=== PATIENT | male | born 1955 | race Two or more races ===

== ENCOUNTER 2018-02-09 11:46 | Emergency (ER) | payer OTHER ==
[~2018-02-09] VITALS: Ht 180.3 cm; Wt 81.6 kg
--- NOTE | 2018-02-09 11:55 | NUR ---
BUSINESS UNIT LEADER AT BEDSIDE
[2018-02-09] MEDS ORDERED: IBUPROFEN 600 MG TABLET PO ONE (11:57)
[2018-02-09] MEDS: IBUPROFEN 600 MG TABLET PO ONE (11:59)
--- NOTE | 2018-02-09 13:21 | NUR ---
Patient discharged to home in stable condition. Written and verbal after care instructions given. Patient verbalizes understanding of instruction.
[2018-02-09 13:22] VITALS: BP 135/84
== END 2018-02-09 13:22 | disposition home or self-care (01) ==
LOC: ER 11:47
DX: S70.01XA Contusion of right hip, initial encounter (principal); I10 Essential (primary) hypertension; Z98.890 Other specified postprocedural states; W18.39XA Other fall on same level, initial encounter; Y93.K1 Activity, walking an animal; Y92.89 Other specified places as the place of occurrence of the external cause; Y99.8 Other external cause status
CPT/HCPCS: 72170; 73502; 99284; A4606; Z7610

== ENCOUNTER 2018-06-18 21:44 | Emergency (ER) | payer OTHER ==
[~2018-06-18] VITALS: Ht 182.9 cm; Wt 89.4 kg
[2018-06-18 22:02] VITALS: BP 135/84
[2018-06-18] MEDS ORDERED: diphenhydrAMINE HCL 50 MG CAPSULE ONE (23:15)
[2018-06-18] MEDS ORDERED: diphenhydrAMINE HCL 25 MG CAPSULE PO ONE (23:30)
== END 2018-06-18 23:26 | disposition home or self-care (01) ==
LOC: ER 21:45
DX: S50.362A Insect bite (nonvenomous) of left elbow, initial encounter (principal); S90.561A Insect bite (nonvenomous), right ankle, initial encounter; I10 Essential (primary) hypertension; R29.810 Facial weakness; Z98.890 Other specified postprocedural states; W57.XXXA Bitten or stung by nonvenomous insect and other nonvenomous arthropods, initial encounter; Y93.01 Activity, walking, marching and hiking; Y92.89 Other specified places as the place of occurrence of the external cause; Y99.8 Other external cause status
CPT/HCPCS: 99282; A4606; Q0163; Z7610

== ENCOUNTER 2019-01-05 08:29 | Inpatient (IN) | payer OTHER ==
[~2019-01-05] VITALS: Ht 182.9 cm; Wt 80.7 kg
--- NOTE | 2019-01-05 08:29 | NUR ---
BIB W C/O LEFT SIDED CHEST PAIN RADIATING TO L ARM SINCE 5 PM YESTERDAY. TO ER BED 2, HOOKED TO MONITOR, CHANGED TO [employer]YLEEN CABLE SPLICER HELPER AT BEDSIDE, DR LOVETT AT BEDSIDE.
[2019-01-05] MEDS ORDERED: HYDR12.5 PO (08:39)
[2019-01-05] MEDS ORDERED: ASPI-1152 PO (08:39)
[2019-01-05] MEDS ORDERED: ATEN25TA PO (08:39)
[2019-01-05 08:46] LABS: BASOPHILS % (AUTO) 0.5 % (0.0-2.0); EOSINOPHILS % (AUTO) 0.9 % (0.0-6.0); HEMATOCRIT 50 % (39-51); HEMOGLOBIN 16.8 g/dL (13.5-17.5); LYMPHOCYTES # (AUTO) 1.7 /CMM (0.8-4.8); LYMPHOCYTES % (AUTO) 25.4 % (20.0-44.0); MEAN CORPUSCULAR HGB CONC 34 g/dl (31.0-36.0); MEAN CORPUSCULAR VOLUME 90 fL (80-96); MONOCYTES # (AUTO) 0.5 /CMM (0.1-1.30); MONOCYTES % (AUTO) 8.4 % (2.0-12.0); NEUTROPHILS # (AUTO) 4.2 /CMM (1.8-8.9); NEUTROPHILS % (AUTO) 64.8 % (43.0-81.0); PLATELET COUNT (AUTO) 178 /CMM (150-450); RED BLOOD CELL COUNT(AUTO) 5.52 MIL/uL (4.5-6.0); WHITE BLOOD COUNT (AUTO) 6.5 K/uL (4.3-11.0)
[2019-01-05] MEDS ORDERED: NITROGLYCERIN 0.4 MG/TAB BOTTLE ONE (08:48)
[2019-01-05] MEDS ORDERED: ASPIRIN 325 MG TABLET ONE (08:48)
[2019-01-05] MEDS ORDERED: ASPIRIN 325 MG TABLET PO ONE (09:00)
[2019-01-05] MEDS ORDERED: NITROGLYCERIN 0.4 MG/TAB BOTTLE SL ONE (09:00)
--- NOTE | 2019-01-05 09:00 | NUR ---
DR LOVETT AT BEDSIDE, RE-ASSESSED PT FOR CHEST PAIN, PT VERBALIZED "IT'S STILL THE SAME", PT MENTIONED TINGLING SENSATION AT BOTH FEET
[2019-01-05 09:21] LABS: ALANINE AMINOTRANSFERASE 31 U/L (12-78); ALBUMIN 3.8 g/dL (3.4-5.0); ALKALINE PHOSPHATASE 91 U/L (46-116); ASPARTATE AMINOTRANSFERASE 28 U/L (15-37); BILIRUBIN,DIRECT 0.1 mg/dL (0.0-0.2); BILIRUBIN,TOTAL 0.7 mg/dL (0.2-1.0); CALCIUM, SERUM 9.2 mg/dL (8.5-10.1); CARBON DIOXIDE 31 mmol/L (21-32); CHLORIDE 104 mmol/L (98-107); CREATININE 1.2 mg/dL (0.6-1.3); GLUCOSE 111 mg/dL (74-106); POTASSIUM 3.5 mmol/L (3.5-5.1); SODIUM SERUM 140 mmol/L (136-145); UREA NITROGEN, BLOOD 17 mg/dL (7-18)
--- NOTE | 2019-01-05 09:30 | NUR ---
DR. NADREAS LOERA ON-CALL.
--- NOTE | 2019-01-05 09:53 | NUR ---
FOLLOW UP. [facility] DR. ANDREAS ROPER ON-CALL.
--- NOTE | 2019-01-05 10:05 | NUR ---
REPORT GIVEN TO MIMI RUBIO OF TELE UNIT FOR [facility]
--- NOTE | 2019-01-05 10:16 | NUR ---
PT WHEELED OUT FOR CTA
[2019-01-05] MEDS ORDERED: HYDROCODONE/APAP 5/325MG 1 EACH TABLET PO PRN (12:00)
[2019-01-05] MEDS ORDERED: MAGNESIUM HYDROXIDE 30 ML UDC PO PRN (12:00)
[2019-01-05] MEDS ORDERED: ZOLPIDEM TARTRATE 5 MG TABLET PO PRN (12:00)
[2019-01-05] MEDS ORDERED: ONDANSETRON HCL/PF 4 MG/2 ML VIAL IVP PRN (12:00)
[2019-01-05] MEDS ORDERED: Z GUARD REMEDY 2 OZ OINT TP PRN (12:00)
[2019-01-05] MEDS ORDERED: MAG HYDROX/AL HYDROX/SIMETH 30 ML UDC PO PRN (12:00)
--- NOTE | 2019-01-05 12:55 | NUR ---
TELE ADMITTING NOTES PT ADMITTED TO UNIT AT 1245 VIA [facility] ACCOMPANIED BY ER NURSE TRELL. AWAKE, A/O X4. ABLE TO WALK FROM GURNEY TO BED. PT IS ABLE TO MAKE NEEDS KNOWN. PT ORIENTED TO UNIT AND ROOM. PLACED ON TELE MONITORING WITH SINUS RHYTHM AND HR ON 80S. PT WITH DIAGNOSIS OF CHEST PAIN, BUT NO COMPLAINS OF CP AT THIS TIME. VITAL SIGNS TAKEN AND RECORDED. PT WITH LEFT AC 20G SL, INTACT AND PATENT. ASSESSMENT DONE, SKIN INTACT. LUNGS CLEAR, BILATERAL ON AUSCULTATION. ABDOMEN SOFT AND NON-TENDER, NON DISTENDED. SAFETY MEASURES INITIATED; BED IN LOW, LOCKED POSITION WITH SR X2. CALL LIGHT KEPT WITHIN REACH. NIHSS STROKE PROTOCOL INITIATED; PT HAS RIGHT FACIAL DROOPING THAT IS BEEN THERE FOR 20 YEARS AND HAD BRAIN SURGERY TO REMOVE TUMOR. PT ABLE TO SWALLOW AND DRINK WITHOUT CHOKING OR ASPIRATION. NO DRIFT NOTED TO BILATERAL UPPER AND LOWER EXTREMITIES, BUT COMPLAINTS OF LEFT SIDE TINGLING SENSATION TO UPPER AND LOWER EXTREMITIES. DR JOHNS ON UNIT, INFORMED AND WENT TO ASSESS AND EVALUATE PT. DR JOHNS ORDERED STAT CT OF HEAD WITHOUT CONTRAST TO R/O STROKE, WITHOUT OVERHEAD PAGE FOR STROKE. WILL CONTINUE TO ASSESS AND MONITOR.
[2019-01-05] MEDS ORDERED: IOHEXOL-350 100 ML VIAL IV ONE (13:43)
[2019-01-05] MEDS ORDERED: IV NS 0.9% 250 ML IV ONE (13:43)
--- NOTE | 2019-01-05 13:45 | NUR ---
RN NOTES PT ASSISTED FOR CT OF HEAD WITHOUT CONTRAST VIA BED.
[2019-01-05 14:00] VITALS: BP 126/85
[2019-01-05 15:12] LABS: CALCIUM, SERUM 8.6 mg/dL (8.5-10.1); CREATININE 1.3 mg/dL (0.6-1.3); POTASSIUM 3.4 mmol/L (3.5-5.1)
[2019-01-05 16:00] VITALS: BP 113/78
[2019-01-05] MEDS ORDERED: POTASSIUM CHLORIDE 20 MEQ TAB.PRT.SR PO SCH (16:00)
[2019-01-05] MEDS: ACETAMINOPHEN 325 MG TABLET PO PRN ×2 (16:23→22:18)
--- NOTE | 2019-01-05 16:26 | NUR ---
NEON SIGN WORKER NOTES PT REQUESTED FOR TYLENOL FOR HEADACHE. TYLENOL PRN GIVEN ORDERED AT 1623.
[2019-01-05 17:08] LABS: BILIRUBIN,TOTAL 0.5 mg/dL (0.2-1.0)
[2019-01-05 17:09] LABS: ALBUMIN 3.4 g/dL (3.4-5.0); THYROID STIMULATING HORMONE 0.605 uIU/mL (0.358-3.74); TOTAL PROTEIN, SERUM 6.9 g/dL (6.4-8.2)
[2019-01-05] MEDS: BLOOD SUGAR DIAGNOSTIC 1 EACH STRIP IN SCH ×4 (17:51→23:23)
--- NOTE | 2019-01-05 19:00 | NUR ---
YOUTH PROBATION OFFICER CLOSING NOTES PT AWAKE IN BED WITH VISITORS AT BEDSIDE. A/O X4. ABLE TO MAKE NEEDS KNOWN, VERBALIZED THAT HIS CHESTPAIN IS TOLERABLE SINCE ADMISSION TO UNIT. ON TELE MONITORING WITH SINUS RHYTHM AND HR ON THE 70'S @ THIS TIME. PIV ON LEFT AC G#20 SL, INTACT AND PATENT. ALL SAFETY MEASURES KEPT IN PLACE. BED IN LOW, LOCKED POSITION WITH SR X2. CALL LIGHT KEPT WITHIN REACH. ALL NEEDS AND CARE ATTENDED WELL. WILL ENDORSE TO MANUFACTURING ELECTRICIAN NURSE FOR [facility].
[2019-01-05 20:00] VITALS: BP 120/83
--- NOTE | 2019-01-05 20:16 | NUR ---
BANDOLEER STRAIGHTENER STAMPER NOTES RECEIVED PATIENT AWAKE IN BED WITH NO DISTRESS NOTED. CALL LIGHT WITHIN REACH. FAMILY AT BEDSIDE. NO C/O CHEST PAIN OR DISCOMFORT. PERIPHERAL LINE INTACT AND PATENT. BED IN LOW LOCK SETTING. ALL BELONGINGS KEPT NEAR BEDSIDE. WILL CONTINUE TO MONITOR.
[2019-01-05 21:57] LABS: APPEARANCE,URINE CLEAR (CLEAR); BILIRUBIN,URINE NEGATIVE (NEGATIVE); BLOOD, URINE NEGATIVE Ery/uL (NEGATIVE); COLOR,URINE YELLOW (YELLOW); KETONES,URINE NEGATIVE (NEGATIVE); LEUKOCYTE ESTERASE ,URINE NEGATIVE (NEGATIVE); NITRITE, URINE NEGATIVE (NEGATIVE); PH,URINE 6.5 (5.0-8.0); PROTEIN,URINE NEGATIVE (NEGATIVE); UGLUCOSE NEGATIVE (NEGATIVE); UROBILINOGEN,URINE 0.2 EU/dL (0.2)
[2019-01-06] VITALS: BP 120/83
[2019-01-06 04:00] VITALS: BP 137/82
[2019-01-06] MEDS: BLOOD SUGAR DIAGNOSTIC 1 EACH STRIP IN SCH ×5 (06:14→21:20)
--- NOTE | 2019-01-06 06:15 | NUR ---
REDRAWER NOTES PATIENT AWAKE IN BED WITH NO DISTRESS NOTED. CALL LIGHT WITHIN REACH. ALL DUE MEDS GIVEN ORDERED WITH NO ASE NOTED. NO FURTHER C/O PAIN OR DISCOMFORT. NO CHANGES IN NEURO STATUS. VITALS WNL. PERIPHERAL LINE INTACT AND PATENT. ALL BELONGINGS KEPT NEAR BEDSIDE. WILL ENDORSE TO ONCOMING SHIFT.
[2019-01-06 07:09] LABS: BASOPHILS % (AUTO) 0.5 % (0.0-2.0); EOSINOPHILS % (AUTO) 1.5 % (0.0-6.0); HEMATOCRIT 48 % (39-51); HEMOGLOBIN 16.1 g/dL (13.5-17.5); LYMPHOCYTES # (AUTO) 1.4 /CMM (0.8-4.8); LYMPHOCYTES % (AUTO) 22.4 % (20.0-44.0); MEAN CORPUSCULAR HGB CONC 34 g/dl (31.0-36.0); MEAN CORPUSCULAR VOLUME 89 fL (80-96); MONOCYTES # (AUTO) 0.5 /CMM (0.1-1.30); MONOCYTES % (AUTO) 7.2 % (2.0-12.0); NEUTROPHILS # (AUTO) 4.4 /CMM (1.8-8.9); NEUTROPHILS % (AUTO) 68.4 % (43.0-81.0); PLATELET COUNT (AUTO) 160 /CMM (150-450); RED BLOOD CELL COUNT(AUTO) 5.36 MIL/uL (4.5-6.0); WHITE BLOOD COUNT (AUTO) 6.4 K/uL (4.3-11.0)
[2019-01-06 07:12] LABS: CALCIUM, SERUM 8.8 mg/dL (8.5-10.1); CREATININE 1.2 mg/dL (0.6-1.3); MAGNESIUM 2.1 mg/dL (1.8-2.4); PHOSPHORUS 2.7 mg/dL (2.5-4.9); POTASSIUM 3.9 mmol/L (3.5-5.1)
[2019-01-06 08:00] VITALS: BP 167/99
[2019-01-06] MEDS: ASPIRIN EC 81 MG TABLET.DR PO SCH (08:43)
[2019-01-06] MEDS: HYDROCHLOROTHIAZIDE 25 MG TABLET PO SCH (08:43)
[2019-01-06] MEDS: ATENOLOL 25 MG TABLET PO SCH (08:43)
--- NOTE | 2019-01-06 09:10 | NUR ---
m/s umbrella finisher: francesca coombs s.chel coombs done and pt is okay per therapist.
--- NOTE | 2019-01-06 09:38 | NUR ---
DR GOMEZ TEXTED BACK, ON HOLD FOR NOW, HE WILL LET US KNOW.
--- NOTE | 2019-01-06 09:38 | NUR ---
TEXTED DR. GOMEZ FOR MRI APPROVAL.
--- NOTE | 2019-01-06 13:00 | NUR ---
Teaching regarding DVT pumps given to patient. Risks/benefits explained, however patient continued to refuse at this time.
--- NOTE | 2019-01-06 13:38 | NUR ---
m/s legal mediator: notes taken to mri via w/c at this time, accompanied by tech.
--- NOTE | 2019-01-06 14:45 | NUR ---
m/s hvac sheet metal installer: notes pt back from mri.
--- NOTE | 2019-01-06 15:54 | NUR ---
m/s family practice doctor: derik finnegan (artificial stone setter, neuro) notified and made aware of mri result with no new order. pt made aware.
[2019-01-06 16:00] VITALS: BP 135/90
--- NOTE | 2019-01-06 17:47 | NUR ---
m/s antique finisher: notes dr. sutton on the phone and informed md re: mri brain results with no new order.
--- NOTE | 2019-01-06 18:50 | NUR ---
m/s snowmaker: notes resting comfortable in bed with no distress noted. pt remains ambulatory. no drift noted. instructed to call for assistance. will continue to monitor. o.t. eval done and completed, per o.t. pt is very functional and no need for o.t.
--- NOTE | 2019-01-06 19:00 | NUR ---
MS RN OPENING NOTES Received patient A/O X4, awake on bed having a conversation with family at bedside. Speech is clear, patient able to express his concerns. On RA, no SOB/respiratory distress noted. Asymmetrical facial expression, L side of the face affected noted, present upon admission. Denies discomfort at this time. Patient able to ambulate, BRP, steady gait. Symmetrical bilateral extremities strength. Call light at bedside. Will continue to monitor accordingly.
--- NOTE | 2019-01-06 19:00 | NUR ---
m/s plowing gardens: notes bedside report given to socrates (rn) for continuity of care.
[2019-01-06 20:00] VITALS: BP 127/87
[2019-01-06] MEDS ORDERED: LATANOPROST EYE DROP 0.005% 2.5 ML BOTTLE OP SCH (22:00)
--- NOTE | 2019-01-07 06:35 | NUR ---
MS RN CLOSING NOTES Patient awake on bed, on RA, no SOB/respiratory distress noted. Afebrile the whole shift, no new complaints made. All needs attended. Due meds given as ordered, no ASE noted. Able to sleep well throughout the night. Kept bed low and locked, siderails x2 up. Call light at bedside. Endorsed to the next shift.
--- NOTE | 2019-01-07 07:27 | NUR ---
MS RN OPENING NOTES RECEIVED PT LAYING IN BED WITH HOB ELEVATED. PT IS A/O X4, AFEBRILE. RESPIRATIONS ARE EVEN AND UNLABORED, NOT IN ANY ACUTE DISTRESS NOTED. PT NOTED WITH RIGHT FACIAL DROOP, LEFT SIDED WEAKNESS TO BOTH LLE/LUE. DENIES ANY PAIN, SOB, N/V. IV SITE TO RAC INTACT, NO INFILTRATION NOTED. DRESSING KEPT CLEAN AND DRY. SAFETY MEASURES ARE IN PLACE. INSTRUCTED PT TO USE CALL LIGHT WHEN ASSISTANCE IS NEEDED, CALL LIGHT IS LEFT WITHIN REACH. WILL MONITOR THROUGHOUT SHIFT FOR CONTINUITY OF CARE.
[2019-01-07] MEDS: BLOOD SUGAR DIAGNOSTIC 1 EACH STRIP IN SCH ×2 (07:45→11:27)
[2019-01-07 08:00] VITALS: BP 140/90
[2019-01-07 08:12] LABS: BASOPHILS % (AUTO) 0.3 % (0.0-2.0); EOSINOPHILS % (AUTO) 1.7 % (0.0-6.0); HEMATOCRIT 47 % (39-51); HEMOGLOBIN 16.1 g/dL (13.5-17.5); LYMPHOCYTES # (AUTO) 1.6 /CMM (0.8-4.8); LYMPHOCYTES % (AUTO) 21.2 % (20.0-44.0); MEAN CORPUSCULAR HGB CONC 34 g/dl (31.0-36.0); MEAN CORPUSCULAR VOLUME 89 fL (80-96); MONOCYTES # (AUTO) 0.6 /CMM (0.1-1.30); MONOCYTES % (AUTO) 7.6 % (2.0-12.0); NEUTROPHILS # (AUTO) 5.1 /CMM (1.8-8.9); NEUTROPHILS % (AUTO) 69.2 % (43.0-81.0); PLATELET COUNT (AUTO) 170 /CMM (150-450); RED BLOOD CELL COUNT(AUTO) 5.29 MIL/uL (4.5-6.0); WHITE BLOOD COUNT (AUTO) 7.4 K/uL (4.3-11.0)
[2019-01-07] MEDS: ATENOLOL 25 MG TABLET PO SCH (08:14)
[2019-01-07] MEDS: ASPIRIN EC 81 MG TABLET.DR PO SCH (08:14)
[2019-01-07 08:15] VITALS: BP 140/90
[2019-01-07] MEDS: HYDROCHLOROTHIAZIDE 25 MG TABLET PO SCH (08:15)
[2019-01-07 08:36] LABS: CALCIUM, SERUM 9.1 mg/dL (8.5-10.1); CREATININE 1.2 mg/dL (0.6-1.3); POTASSIUM 4.5 mmol/L (3.5-5.1)
--- NOTE | 2019-01-07 09:55 | NUR ---
MS RN NOTES-- PT SEEN AND EXAMINED BY MAYO KAMARA. ONCE CLEARED BY NEURO, PT MAY BE DISCHARGED.
[2019-01-07] MEDS ORDERED: ATOR10TA PO (10:42)
--- NOTE | 2019-01-07 12:13 | NUR ---
MS SUPERVISOR METAL FURNITURE FABRICATION NOTE PT DISCHARGED TO HOME WITH L[facility]ORE IN STABLE CONDITION. PT IS A/O X4, AFEBRILE. RESPIRATIONS ARE EVEN AND UNLABORED, NOT IN ANY ACUTE DISTRESS NOTED. PT IS AMBULATORY. DENIES ANY PAIN, SOB, N/V. ABDOMEN IS SOFT AND NONDISTENDED, BOWEL SOUNDS ARE PRESENT IN ALL 4 QUADRANTS UPON AUSCULTATION. DENIES ANY BLADDER DISCOMFORT. NO SKIN ISSUES NOTED. IV SITE REMOVED, APPLIED PRESSURE AND TOLERATED WELL. ID BAND REMOVED. EXPLAINED DISCHARGE INSTRUCTIONS TO PT AND WITH VERBAL AND WRITTEN UNDERSTANDING, INCLUDING CD OF IMAGES. ACCOMPANIED PT TO LOBBY WITH 1 STAFF ASSISTANCE IN STABLE CONDITION.
== END 2019-01-07 12:10 | disposition home or self-care (01) | DRG 203 ==
LOC: ER 08:31 → TELE 10:53 → MED 01-06 10:46
PROVIDERS: ADMIT Family Medicine; ATTEND Nurse Practitioner Acute Care
DX: M94.0 Chondrocostal junction syndrome [Tietze] (principal); G81.94 Hemiplegia, unspecified affecting left nondominant side; D33.3 Benign neoplasm of cranial nerves; E78.5 Hyperlipidemia, unspecified; I10 Essential (primary) hypertension; R09.1 Pleurisy; Z82.49 Family history of ischemic heart disease and other diseases of the circulatory system; Z79.82 Long term (current) use of aspirin; Z86.011 Personal history of benign neoplasm of the brain; Z98.890 Other specified postprocedural states; Z79.899 Other long term (current) drug therapy; Z80.8 Family history of malignant neoplasm of other organs or systems; H91.91 Unspecified hearing loss, right ear
CPT/HCPCS: 36415; 70450-TC; 70551-TC; 71045-TC; 80048-TC; 80053-TC; 80061-TC; 80076-TC; 80305; 81000-TC; 82962-TC; 83735-TC; 83880; 84100-TC; 84443-TC; 84484-TC; 85025-TC; 85652-TC; 85730-TC; 87081-TC; 92611-TC; G0378; J7050; Q9967